=== PATIENT | female | born 1995 | race Caucasian/White ===

== ENCOUNTER → 2016-12-09 00:14 | Observation (INO) ==
--- NOTE | 2016-12-08 23:38 | OB/GYN Progress Note ---
Date of Encounter: 12/08/16 Time of Encounter: 23:34 - Assessment and Plan (1) 31 weeks gestation of Current Visit: Yes Status: Acute admit for observation (2) Vaginal discharge during in third trimester Current Visit: Yes Status: Acute Speculum exam Subjective - Subjective Principal diagnosis: Vaginal discharge Interval history: Patient is 21 y/o at 31 weeks gestational age presents to labor and delivery with c/o of a small gush of fluid at 2230. Patient denies any VB or leaking since. Patient did have intercourse earlier in the evening. Patient's primary OB doctor is Dr. Mcdonnell. Patient states she paged the missing persons investigator doctor but has not heard back for them and was worried because she has had a recent delivery. Patient denies any problems current . Denies smoking, drug or alcohol abuse. Patient denies any urinary frequency or dysuria. Patient states " I checked my cervix and it felt open". Antepartum ROS: loss of fluid, movement normal, no vaginal bleeding, no contractions Objective - Exam FHR: auscultation normal, category 1 FHR comments: 140 bpm moderate variability, no contractions noted Auscultation: bilateral: normal Abdomen: Present: normal appearance, soft, gravid Uterus: Present: normal Cervical dilation: closed Cervix effacement: thick station: ballotable Comments: Speculum exam: Negative pooling, negative nitrazine, Negative fern. Small amount of white discharge noted.
[2016-12-08 23:40] VITALS: BP 121/74
--- NOTE | 2016-12-14 08:04 | Discharge Summary ---
Date of Encounter: 12/08/16 Time of Encounter: 23:40 - Discharge Diagnosis (1) 31 weeks gestation of Priority: Primary Status: Acute Comments: admit for observation (2) Vaginal discharge during in third trimester Priority: Secondary Status: Acute Comments: Negative Nitrazine Negative Fern, Negative pooling - Discharge Medications Home Medications: Lexapro 10 mg PO DAILY 12/08/16 [History] Allergies/Adverse Reactions: Allergies Amoxicillin Allergy (Verified 07/12/16 23:46) Rash Date of admission: 12/08/16 23:23 Primary care physician: Iqra Tolentino Discharging clinician: Jo Sarah Anticipated date of discharge: 12/14/16 - Patient Status Disposition: Home, Self-Care Condition: Good - Discharge Instructions Follow Up With: Iqra Tolentino MD [Primary Care Provider] - - Diet and Activity Activity: increase activity as tolerated 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
== END | disposition home or self-care (01) ==
LOC: 1NENULAB

== ENCOUNTER → 2017-01-21 20:40 | Observation (INO) ==
--- NOTE | 2017-02-04 13:46 | OB Labor Progress Note ---
Date of Encounter: 01/21/17 Time of Encounter: 13:45 Labor Progress Note - Plan Plan: patient seen on Labor and Delivery for labor eval, she was examined and deemed not to be in labor, ok for discharge, NST reactive
== END | disposition home or self-care (01) ==
LOC: 1NENULAB
PROVIDERS: ADMIT Student in an Organized Health Care Education/Training Program; ATTEND Student in an Organized Health Care Education/Training Program

== ENCOUNTER 2017-01-31 10:31 | Inpatient (IN) ==
[2017-01-31] MEDS ORDERED: 0.9 % Sodium Chloride 1,000 ML IVC ONE ×5 (10:45→18:59)
--- NOTE | 2017-01-31 10:49 | Emergency Department Note ---
Disposition Clinical Impression: Febrile illness, Acute endometritis Disposition: Admitted As Inpatient Condition: Good Referrals: Iqra Tolentino MD [Primary Care Provider] - Forms: ED Satisfaction Letter Time of Disposition: 15:52 Fever HPI - General Chief Complaint: ED Fever Stated Complaint: fever, dizzy, shortness of breath Time Seen by Provider: 01/31/17 10:39 Source: patient, EMS Limitations: no limitations Nursing Notes Reviewed: Yes Vital Signs Reviewed: Yes - History of Present Illness HPI Narrative: 21-year-old female presents to the emergency room for fevers cough and shortness of breath. Patient is status post 3 days vaginal delivery without any complications. She did have a epidural placed during her delivery. She tolerated all this well. She states that she started feeling sick last evening and worse about 1 AM with some Rigors and fevers. She took some ibuprofen at that time. She woke up this morning with persistent fevers and rigors. She had a temp of near 102. She came into the ER for evaluation. Again she did have a vaginal delivery without any complications. She denies any significant abdominal pain. She said they did remove all the placenta as far she knew. She is not having any out of the ordinary vaginal complaints for a delivery. She denies any back pain. She does admit to generalized body aches. She also admits to a cough and shortness of breath. She states her cough is getting worse and she is unable to get any phlegm up. She has had no vomiting or diarrhea. She is not breast-feeding. She denies any neck pain or neck stiffness. She does feel slightly dizzy which she chewed beats to the fevers. Pt Subjective Complaint: fever Maximum Temperature Reported: 102 F Context: recent procedure/surgery Associated symptoms: Reports: chills, rigors, myalgias, dyspnea. Denies: vomiting, diarrhea, dysuria Improves with: nothing Worsens with: nothing Treatments prior to arrival fever: ibuprofen - Related Data Home Medications Medication Instructions Recorded Confirmed DiphenhydraMINE [Benadryl] 25 mg PO Q6HR PRN 01/21/17 01/31/17 BuPROPion XL (24 HR) [Wellbutrin 150 mg PO DAILY 01/31/17 01/31/17 XL] Multivitamin [Multi-Day Vitamins] 1 each PO DAILY 01/31/17 01/31/17 Allergies Allergy/AdvReac Type Severity Reaction Status Date / Time Amoxicillin Allergy Rash Verified 07/12/16 23:46 Constitutional: Reports: fever, chills Eyes: Denies: eye pain Cardiovascular: Reports: dyspnea on exertion. Denies: chest pain Respiratory: Reports: cough, dyspnea Gastrointestinal: Reports: abdominal pain Genitourinary: Denies: urgency, dysuria Musculoskeletal: Denies: back pain Integumentary: Denies: rash Neurological: Reports: headache Psychiatric: Reports: as per HPI Endocrine: Reports: as per HPI Hematological/Lymphatic: Reports: as per HPI Allergic/Immunologic: Reports: as per HPI Fever PMH - Past Medical History Medical history: Reports: migraine Surgical history: Reports: no surgical history Psychiatric history: Reports: anxiety, depression MEDICAL BILLING SUPERVISOR history: Reports: no MEDICAL BILLING SUPERVISOR history - Social History Smoking Status: Former smoker Alcohol use: Reports: none Drug use: Reports: none Physical Exam - General Limitations: no limitations General appearance: alert, in no apparent distress - Head Head exam: atraumatic, normocephalic - Eye Eye exam: Present: normal appearance - ENT ENT exam: normal exam, normal oropharynx - Neck Neck exam: Present: normal inspection - Chest Chest inspection: Present: normal inspection, symmetric chest wall rise - Respiratory Respiratory exam: Present: normal lung sounds bilaterally. Absent: respiratory distress, wheezes - Cardiovascular Cardiovascular exam: Present: normal rhythm, tachycardia - Abdominal Exam Abdominal exam: Present: soft, Non-Tender, diminished bowel sounds. Absent: tenderness, distention, guarding, rebound, rigidity - Extremities Exam Extremities exam: Present: normal inspection, full ROM, normal capillary refill. Absent: tenderness, pedal edema, joint swelling, calf tenderness - Back Exam Back exam: Present: normal inspection, other (epidural site appears well). Absent: tenderness - Neurological Exam Neurological exam: Present: alert, oriented X3 - Psychiatric Psychiatric exam: Present: normal affect, normal mood - Skin Skin exam: Present: warm, dry, intact Course - Reevaluation(s) Reevaluation #1: i placed call to CT scan about when they were taking my patient. that was at 11 :45. I said she was ready to go. they stated they had come over but a nurse was in the room and left. they did not tell me this nor did they anusha ask the nurse what the plan of action was. i told them to come back to take her. my initial order was placed at 11:05am. they said they would come back as soon as they could. i called back at 12:40. still no pharmacy intake technician has come to get patient. they said they would come over now. they come over and saw the Tech in the room and left again without even addressing the tech or myself. i called CT back again and they said someone was in the room. i told them that it doesn't matter. did you ask what was taking place in the room? they said no. I said the order was placed at 11:05 and its now 12:48, nearly two hours later on a patient who needs this CT chest to eval for PE. this is not good patient care. I have notified the charge nurse of this. i told the pharmacy intake technician kai and Martina that they need to talk the nurses and techs and if they can't take the patient they need to notify me directly and i can expedite things and direct traffic. Reevaluation #2: Pt c/o pain all over again. starting to have rigors again. she is afebrile now. CT chest is negative. no PE. no Pneumonia. will call [facility] for transfer. Reevaluation #3: Spoke on phone with [facility] and specifically with Dr Mcdonnell with OBGYN. this is her patient and she saw pt in the office just yesterday. she said everything was fine. pt states she didn't feel fine and continued to worsen over night. i explained all of my work up to her on the phone and she absolutely refused to accept the patient. she said we can take care of this here. i insisted that this was her patient and possible post OB complication and would need her OB to see her and evaluate her but she absolutely refused to take care of her own practice patient. she said i was wasting health care dollars and that an obgyn can handle it here at our facility. i told her i didn 't feel this was what was best for the patient as she delivered there and is an established patient of theirs and why would the patient want another subspecialty doctor to have to see her when they can take care of this and evaluate her. she said no and refused and yelled at me over the phone and hung up on me. i updated the patient on Dr Mcdonnell's actions and desires to not see or take care of her. i am attempting to her the patient admitted here at [facility]. Vital Signs Temperature 100.2 F H 01/31/17 10:34 Pulse Rate 137 01/31/17 10:34 Respiratory Rate 18 01/31/17 10:34 Blood Pressure 142/77 01/31/17 10:34 O2 Sat by Pulse Oximetry 96 01/31/17 10:34 Temperature 98.7 F 01/31/17 15:28 Pulse Rate 113 01/31/17 15:28 Respiratory Rate 18 01/31/17 15:28 Blood Pressure 126/72 01/31/17 15:28 O2 Sat by Pulse Oximetry 99 01/31/17 15:28 Oxygen Delivery Oxygen Delivery Room Air Fever - MDM Narrative Medical decision making narrative: pt will be admitted to hospitalist as dr duffy has accepted pt. consult to be done to OB for possible endometritis - Medical Records Medical records reviewed: Yes I reviewed the patient's medical records. - Lab Data Lab results reviewed: Yes I reviewed the patient's lab results. Result diagrams: 01/31/17 11:00 01/31/17 11:00 Lab Results 01/31/17 01/31/17 01/31/17 Range/Units 11:00 11:00 11:00 WBC 9.7 (4.3-11.1) K/mcL RBC 3.86 (3.82-4.97) M/mcL Hgb 11.2 L (11.5-15.4) g/dL Hct 33.2 L (35.3-44.9) % MCV 86.0 (83.0-100.0) fL MCH 29.0 (28.0-33.3) pg MCHC 33.7 (31.6-35.5) g/dL RDW 15.3 H (11.5-14.5) % Plt Count 230 (140-400) K/mcL MPV 8.4 L (9.4-12.4) fL Immature Gran % 0.7 (0-4) % Seg Neutrophils % 88.2 % Lymphocytes % 4.2 % Monocytes % 5.7 % Eosinophils % 0.9 % Basophils % 0.3 % Neutrophils # 8.6 (1.6-8.9) K/mcL Lymphocytes # 0.4 L (0.6-4.6) K/mcL Monocytes # 0.6 (0.0-1.3) K/mcL Eosinophils # 0.1 (0.0-0.6) K/mcL Basophils # 0.0 (0.0-0.2) K/mcL Immature Plt Fraction 1.3 (1.1-6.1) % Sodium 138 (136-145) mEq/L Potassium 3.7 (3.5-4.5) mEq/L Chloride 108 (98-109) mEq/L Carbon Dioxide 22 (19-29) mEq/L BUN 8 (7-20) mg/dL Creatinine 0.71 (0.57-1.11) mg/dL Est GFR ( Amer) > 60 (> 60) Est GFR (Non-Af Amer) > 60 (> 60) BUN/Creatinine Ratio 11 (6-26) Glucose 85 (70-99) mg/dL Calculated Osmolality 284 (280-300) Lactic Acid 1.6 (0.5-2.2) mmol/L Calcium 8.9 (8.6-10.8) mg/dL Total Bilirubin 0.4 (0.2-1.2) mg/dL Direct Bilirubin 0.1 (0.0-0.5) mg/dL Indirect Bilirubin 0.3 (0.0-1.2) mg/dL AST 16 (5-34) Units/L ALT 14 (0-55) Units/L Alkaline Phosphatase 122 (38-126) Units/L Serum Total Protein 6.1 (6.0-8.3) g/dL Albumin 2.6 L (3.5-5.0) g/dL Globulin 3.5 (2.4-3.5) g/dL Albumin/Globulin Ratio 0.7 L (1.1-2.2) Urine Color (Yellow) Urine Clarity (Clear) Urine pH (5.0-8.0) pH Units Ur Specific [place] (1.010-1.025) Urine Protein (Neg-Trace) mg/dL Urine Glucose (UA) (Normal) mg/dL Urine Ketones (Negative) mg/dL Urine Blood (Negative) Urine Nitrite (Negative) Urine Bilirubin (Negative) Urine Urobilinogen (Normal) mg/dL Ur Leukocyte Esterase (Negative) Ur Culture Indicated? (NO) 06/06/17 Range/Units 11:07 WBC (4.3-11.1) K/mcL RBC (3.82-4.97) M/mcL Hgb (11.5-15.4) g/dL Hct (35.3-44.9) % MCV (83.0-100.0) fL MCH (28.0-33.3) pg MCHC (31.6-35.5) g/dL RDW (11.5-14.5) % Plt Count (140-400) K/mcL MPV (9.4-12.4) fL Immature Gran % (0-4) % Seg Neutrophils % % Lymphocytes % % Monocytes % % Eosinophils % % Basophils % % Neutrophils # (1.6-8.9) K/mcL Lymphocytes # (0.6-4.6) K/mcL Monocytes # (0.0-1.3) K/mcL Eosinophils # (0.0-0.6) K/mcL Basophils # (0.0-0.2) K/mcL Immature Plt Fraction (1.1-6.1) % Sodium (136-145) mEq/L Potassium (3.5-4.5) mEq/L Chloride (98-109) mEq/L Carbon Dioxide (19-29) mEq/L BUN (7-20) mg/dL Creatinine (0.57-1.11) mg/dL Est GFR ( Amer) (> 60) Est GFR (Non-Af Amer) (> 60) BUN/Creatinine Ratio (6-26) Glucose (70-99) mg/dL Calculated Osmolality (280-300) Lactic Acid (0.5-2.2) mmol/L Calcium (8.6-10.8) mg/dL Total Bilirubin (0.2-1.2) mg/dL Direct Bilirubin (0.0-0.5) mg/dL Indirect Bilirubin (0.0-1.2) mg/dL AST (5-34) Units/L ALT (0-55) Units/L Alkaline Phosphatase (38-126) Units/L Serum Total Protein (6.0-8.3) g/dL Albumin (3.5-5.0) g/dL Globulin (2.4-3.5) g/dL Albumin/Globulin Ratio (1.1-2.2) Urine Color Yellow (Yellow) Urine Clarity Clear (Clear) Urine pH 7.5 (5.0-8.0) pH Units Ur Specific [place] 1.023 (1.010-1.025) Urine Protein Negative (Neg-Trace) mg/dL Urine Glucose (UA) Normal (Normal) mg/dL Urine Ketones Negative (Negative) mg/dL Urine Blood Negative (Negative) Urine Nitrite Negative (Negative) Urine Bilirubin Negative (Negative) Urine Urobilinogen Normal (Normal) mg/dL Ur Leukocyte Esterase Negative (Negative) Ur Culture Indicated? NO (NO) - Radiology Data Radiology results reviewed: Yes I reviewed the patient's radiology results. Critical Care Time Critical Care Time: Yes Total Critical Care Time: 65 Attestation: Critical care time spent in medical resuscitation with IV fluids and IV antibiotics as well as extensive workup of the patient with fever. Critical care time also spent and consultations with the hospitalist, her MEDICAL BILLING SUPERVISOR at [facility], the wind field service manager here at [facility] [place].
[2017-01-31 11:09] LABS: Basophils % 0.3 %; Eosinophils # 0.1 K/mcL (0.0-0.6); Eosinophils % 0.9 %; Hematocrit 33.2 % (35.3-44.9); Hemoglobin 11.2 g/dL (11.5-15.4); Immature Granulocytes % 0.7 % (0-4); Immature Platelets 1.3 % (1.1-6.1); Lymphocytes # 0.4 K/mcL (0.6-4.6); Lymphocytes % 4.2 %; Mean Corpuscular HGB Conc 33.7 g/dL (31.6-35.5); Mean Platelet Volume 8.4 fL (9.4-12.4); Monocytes # 0.6 K/mcL (0.0-1.3); Monocytes % 5.7 %; Neutrophils # 8.6 K/mcL (1.6-8.9); Platelet Count 230 K/mcL (140-400); Red Blood Count 3.86 M/mcL (3.82-4.97); Red Cell Distribution Width 15.3 % (11.5-14.5); Segmented Neutrophils % 88.2 %
[2017-01-31 11:19] LABS: Bilirubin,Urine Negative (Negative); Blood,Urine Negative (Negative); Clarity,Urine Clear (Clear); Color,Urine Yellow (Yellow); Glucose,Urine (UA) Normal (Normal); Ketones,Urine Negative (Negative); Leukocyte Esterase,Urine Negative (Negative); Nitrite,Urine Negative (Negative); PH,Urine 7.5 pH Units (5.0-8.0); Protein,Urine Negative (Neg-Trace); Specific Gravity,Urine 1.023 (1.010-1.025); Urobilinogen,Urine Normal (Normal)
[2017-01-31 11:22] LABS: Alanine Aminotransferase 14 Units/L (0-55); Albumin 2.6 g/dL (3.5-5.0); Albumin/Globulin Ratio 0.7 (1.1-2.2); Alkaline Phosphatase 122 Units/L (38-126); Aspartate Amino Transferase 16 Units/L (5-34); BUN/Creatinine Ratio 11 (6-26); Bilirubin,Direct 0.1 mg/dL (0.0-0.5); Bilirubin,Indirect 0.3 mg/dL (0.0-1.2); Bilirubin,Total 0.4 mg/dL (0.2-1.2); Blood Urea Nitrogen 8 mg/dL (7-20); Calcium 8.9 mg/dL (8.6-10.8); Carbon Dioxide 22 mEq/L (19-29); Chloride 108 mEq/L (98-109); Globulin 3.5 g/dL (2.4-3.5); Glucose 85 mg/dL (70-99); Osmolality,Calculated 284 (280-300); Potassium 3.7 mEq/L (3.5-4.5); Sodium 138 mEq/L (136-145); Total Protein 6.1 g/dL (6.0-8.3); eGFR For African Americans > 60 (> 60); eGFR For Non-African Americans > 60 (> 60)
[2017-01-31] MEDS ORDERED: 0.9 % Sodium Chloride 1,000 ML ONE (13:12)
[2017-01-31] MEDS ORDERED: Ondansetron 4 MG/2 ML VIAL IVP PRN ×2 (13:25→19:08)
[2017-01-31] MEDS ORDERED: *HR* Morphine 2 MG/ML SYRINGE IVP ONE ×2 (13:25→14:49)
[2017-01-31] MEDS ORDERED: Ketorolac 30 MG/ML VIAL IVP ONE (13:32)
[2017-01-31] MEDS ORDERED: Gentamicin 110 MG in 0.9 % Sodium Chloride 100 ML IVPB ONE (15:00)
[2017-01-31] MEDS ORDERED: Clindamycin 900 MG/50 ML 900 MG/50 ML IV.SOLN IVPB SCH (16:00)
[2017-01-31] MEDS ORDERED: Ondansetron 4 MG/2 ML VIAL ONE (16:02)
[2017-01-31 17:38] LABS: Basophils % 0.1 %; Eosinophils % 0.4 %; Hematocrit 31.9 % (35.3-44.9); Hemoglobin 10.5 g/dL (11.5-15.4); Immature Granulocytes % 1.5 % (0-4); Lymphocytes # 0.4 K/mcL (0.6-4.6); Mean Corpuscular HGB Conc 32.9 g/dL (31.6-35.5); Mean Corpuscular Volume 88.1 fL (83.0-100.0); Mean Platelet Volume 8.6 fL (9.4-12.4); Monocytes # 0.4 K/mcL (0.0-1.3); Neutrophils # 6.7 K/mcL (1.6-8.9); Platelet Count 146 K/mcL (140-400); Red Blood Count 3.62 M/mcL (3.82-4.97); Red Cell Distribution Width 15.5 % (11.5-14.5)
[2017-01-31] MEDS ORDERED: *HR* HYDROcodone/Acet 10/325 mg TABLET PO PRN ×2 (19:07→19:14)
[2017-01-31] MEDS ORDERED: Naloxone 0.4 MG/ML INJ IVP PRN (19:08)
--- NOTE | 2017-01-31 19:37 | Internal Med History&Physical ---
<BraxtonJorge Aguirre - Last Filed: 01/31/17 20:03> Date of Encounter: 01/31/17 Time of Encounter: 18:00 Assessment and Plan (1) Acute endometritis Current visit: Yes Status: Acute Assess: Ms. Hassan presents with chief complaint of fever, cough, and shortness of breath. Patient states that she is 3 days post vaginal delivery without complications. She reports she started feeling sick last night and worse about 1 AM today with some rigors and fevers. She took ibuprofen at the time of fever and rigors continued. She had temp of near 102 F. she denies any significant abdominal pain and states she believes they removed all placenta. Denies back pain but does admit to generalized body aches and chills. She also reports cough and shortness of breath and states her cough is getting worse but she is unable to cough up any mucus or phlegm. Denies vomiting or diarrhea, neck stiffness, or pain. Patient's current WBCs from first and second lab draws are 9.7 and 7.6 respectively. Lactic acid is currently 1.0. Plan: Continuous monitoring of vital signs Pelvic U/S ordered plugman consult ordered Clindamycin IV ordered in ED Ertapenem IV ordered in ED Follow-up labs ordered Tylenol 650 mg ordered Q6 Monitor patient for signs of increased infection and consider adding Flagyl for infection coverage (2) Fever Current visit: Yes Status: Acute Assess: Patient presents with acute fever of 102.0 due to current diagnosis of endometritis. Plan: Continuous monitoring of vital signs Clindamycin IV ordered in ED Ertapenem IV ordered in ED Follow-up labs ordered Tylenol 650 mg ordered Q6 Qualifiers: Fever type: due to other condition Qualified Code(s): R50.81 - Fever presenting with conditions classified elsewhere (3) Dyspnea Current visit: Yes Status: Acute Assess: Patient is dyspneic due to current infection and abdominal pain. Plan: Supplemental O2 ordered with titration if SpO2 <92% SpO2 monitoring ordered Monitor patient and vital signs Qualifiers: Dyspnea type: shortness of breath Qualified Code(s): R06.02 - Shortness of breath (4) Abdominal pain Current visit: Yes Status: Acute Assess: Patient presents with acute abdominal pain related to current diagnosis of endometritis. Patient states she is post 3 days vaginal delivery without complications. Patient feeling sick yesterday evening and worse at 1 AM today with onset of rigors and fever. Plan: Tylenol 650 Q6 ordered for pain 103 Radisson ordered for pain rated 4-8 Qualifiers: Abdominal location: generalized Qualified Code(s): R10.84 - Generalized abdominal pain (5) DVT prophylaxis Current visit: Yes Status: Acute Assess: Patient received DVT prophylaxis due to patient protocol and bedrest status. Plan: SCDs ordered bilaterally for lower legs Internal Medicine - H&P: HPI Chief complaint: Fever/cough/SOB Admitted From: Emergency Dept Plans for Post Hospital Care: Home History of present illness: Ms. Hassan is a 21 year old female presents from the ED with chief complaint of fever, cough, and shortness of breath. Patient states that she is 3 days post vaginal delivery without complications. She reports she started feeling sick last night and worse about 1 AM today with some rigors and fevers. She took ibuprofen at the time of fever and rigors continued. She had temp of near 102 F. she denies any significant abdominal pain and states she believes they removed all placenta. Denies back pain but does admit to generalized body aches and chills. She also reports cough and shortness of breath and states her cough is getting worse but she is unable to cough up any mucus or phlegm. Denies vomiting or diarrhea, neck stiffness, or pain. Patient's current WBCs from first and second lab draws are 9.7 and 7.6 respectively. Lactic acid is currently 1.0. Patient reports current bleeding is light in flow and light in color. Patient is to be admitted as inpatient status with diagnosis of endometritis. Patient received first dose of clindamycin in the ED as well as first dose of gentamicin. Patient showed signs of adverse effects to gentamicin , so infusion was stopped. Patient continues to receive clindamycin with replacement of gentamicin by ertapenem. OB consult ordered placed. Patient is at high risk for developing sepsis and will be monitored for continued or increased signs of infection. Will consider addition of Flagyl to antibiotics as recommended by protocol if signs of infection continue to worsen. Patient will be monitored for adverse effects of antibiotic infusions and will be closely monitored. Antipyretics and pain medications ordered. Past Med Surg Social Fam HX - Past Medical History Source: patient Medical history: migraine Psychiatric history: anxiety, depression - Past Surgical History Surgical History: no surgical history - Social History Smoking Status: Former smoker Smokeless Tobacco Status: No Alcohol use: none Drug use: none Current living situation: Home, With Family Activity Level: Independent ambulation Recent Out of Country Travel Within the Last 8 Weeks: No Exposure or Possible Exposure to Illness During Travel: No - Family History Grandmother Living Status: Still Living Hx Family Cardiac Disorders: No Hx Family Respiratory Disorders: No Hx Family Cancer: No Hx Family GI Disorders: No Hx Family Endocrine Disorder: Yes (diabetic) Hx Family Neuromuscular Disorders: No Hx Family Neurologic Disorders: No Hx Family HEENT Disorders: No Hx Family Autoimmune Disorders: No Internal Medicine - H&P: Meds DiphenhydraMINE [Benadryl] 25 mg PO Q6HR PRN 01/21/17 [History] BuPROPion XL (24 HR) [Wellbutrin XL] 150 mg PO DAILY 01/31/17 [History] Multivitamin [Multi-Day Vitamins] 1 each PO DAILY 01/31/17 [History] Allergies Amoxicillin Allergy (Verified 07/12/16 23:46) Rash All Systems PM: A 10-system review of systems was performed and is negative for pertinent findings except as documented above in the HPI. - Constitutional Constitutional: as per HPI, chills, fever(s) - EENT Eyes: no change in vision, no discharge, no pain, no photophobia Ears: no ear discharge, no ear pain, no tinnitus Nose, mouth and throat: no dysphagia, no nasal discharge, no neck pain, no sore throat - Breasts Breasts: as per HPI - Cardiovascular Cardiovascular ROS IM: as per HPI, dyspnea, no chest pain, no diaphoresis, no lightheadedness, no palpitations, no syncope - Respiratory Respiratory: as per HPI, cough, dyspnea, no wheezing, no excessive phlegm production - Gastrointestinal Gastrointestinal: as per HPI, abdominal pain, no diarrhea, no hematemesis, no hematochezia, no melena, no nausea, no vomiting - Genitourinary Genitourinary: as per HPI, pelvic pain, other (Abdominal pain with light bleeding that is light in color) Menstruation: as per HPI - Musculoskeletal Musculoskeletal ROS IM: no numbness, no tingling - Integumentary Integumentary IM: no rash, no unusual bruising - Neurological Neurological ROS: no confusion, no convulsions, no focal weakness, no numbness, no tingling, no tremor(s) - Psychiatric Psychiatric: as per HPI - Endocrine Endocrine IM: as per HPI - Hematologic/Lymphatic Hematologic/Lymphatic: no easy bruising - Allergic/Immunologic Allergic/Immunologic: as per HPI, other (Reaction to gentamycin) - Constitutional Vitals: Temp Pulse Resp BP Pulse Ox 102.3 F H 125 18 116/93 96 01/31/17 17:00 01/31/17 17:00 01/31/17 18:07 01/31/17 18:07 01/31/17 17:00 General appearance: Present: mild distress (Chills and rigor present on exam), A &O X 3, pleasant, obese, answers questions appropriately - Head Head exam: Present: atraumatic, normocephalic - Eye Eye exam: Present: PERRL, conjuntiva pink, sclera anicteric Pupils: Present: PERRL - ENT ENT exam: Present: normal exam, normal external ear exam - Neck Neck exam general surgery: Present: normal inspection, supple, trachea midline. Absent: lymphadenopathy - Respiratory Respiratory exam: Present: CTAB. Absent: accessory muscle use, rales, rhonchi, wheezes - Cardiovascular Cardiovascular exam: Present: RRR, +S1, +S2, tachycardia. Absent: diastolic murmur, gallop, rubs, systolic murmur - GI/Abdominal GI/Abdominal exam: Present: firm, guarding, normal bowel sounds, soft. Absent: distended, tenderness - Rectal Rectal exam: Present: deferred - Additional comments: exam deferred. - Extremities Exam Extremities exam: Present: warm, radial pulses palpable and symetrical. Absent : calf tenderness, cyanotic, pedal edema - Back Exam Back exam: Present: normal inspection - Neurological Exam Neurological exam: Present: CN II-XII intact, oriented X3, no focal deficits. Absent: pronater drift, facial droop, speech deficit - Psychiatric Psychiatric exam: Present: anxious - Skin Skin exam: Present: dry, intact Internal Med - H&P Results - Labs CBC & Chem 7: 01/31/17 17:28 01/31/17 11:00 Labs: Short CBC 01/31/17 Range/Units 17:28 WBC 7.6 (4.3-11.1) K/mcL Hgb 10.5 L (11.5-15.4) g/dL Hct 31.9 L (35.3-44.9) % Plt Count 146 (140-400) K/mcL Neutrophils # 6.7 (1.6-8.9) K/mcL - Impressions ITS Impressions Abdomen/Pelvis CT 01/31/17 17:14 IMPRESSION: 1. Striated nephrograms in the kidneys, which are nonspecific but can be seen with pyelonephritis as well as ATN and hypotension. 2. Enlarged uterus with moderate hemorrhagic debris along the endometrium, consistent with recent delivery. 3. Moderate splenomegaly. D/ /31/2017 18:18:51 Cecil Castle MD / dawood Interpreting Provider: Cecil Castle MD - Diagnostic Studies CT scan - chest Additional comments: Impressions Chest CTA 01/31/17 11:05 IMPRESSION: No evidence of pulmonary embolism or other acute process in the chest. Mildly limited evaluation of the segmental and subsegmental pulmonary arteries secondary to suboptimal bolus timing. D/ / Chon Mercer MD / Chon Mercer MD Interpreting Provider: Chon Mercer MD CT scan - abdomen Additional comments: Impressions Abdomen/Pelvis CT 01/31/17 17:14 IMPRESSION: 1. Striated nephrograms in the kidneys, which are nonspecific but can be seen with pyelonephritis as well as ATN and hypotension. 2. Enlarged uterus with moderate hemorrhagic debris along the endometrium, consistent with recent delivery. 3. Moderate splenomegaly. D/ /31/2017 18:18:51 Cecil Castle MD / dawood Interpreting Provider: Cecil Castle MD Chest x-ray Additional comments: Impressions Chest X-Ray 01/31/17 10:45 IMPRESSION: No acute cardiopulmonary disease D/ / Deep Reeder MD / Deep Reeder MD Interpreting Provider: Deep Reeder MD <Sadia Pavon E - Last Filed: 02/01/17 07:59> Date of Encounter: 02/01/17 Internal Medicine - H&P: HPI History of present illness: Ms. Hassan is a 21 year old female All Systems PM: A 10-system review of systems was performed and is negative for pertinent findings except as documented above in the HPI. - Constitutional Vitals: Temp Pulse Resp BP Pulse Ox 100.7 F H 106 16 134/80 97 02/01/17 07:25 02/01/17 07:25 02/01/17 07:25 02/01/17 07:25 02/01/17 07:25 Internal Med - H&P Results - Labs CBC & Chem 7: 02/01/17 02:58 02/01/17 02:58 Labs: Short CBC 01/31/17 02/01/17 Range/Units 21:55 02:58 WBC 9.3 9.0 (4.3-11.1) K/mcL Hgb 10.9 L 10.2 L (11.5-15.4) g/dL Hct 33.0 L 31.5 L (35.3-44.9) % Plt Count 174 180 (140-400) K/mcL Neutrophils # 8.2 7.6 (1.6-8.9) K/mcL BMP 02/01/17 02:58 Sodium 136 Potassium 3.5 Chloride 107 Carbon Dioxide 21 BUN 7 Creatinine 0.79 Glucose 73 Calcium 8.0 L Liver Function 02/01/17 Range/Units 02:58 Total Bilirubin 0.4 (0.2-1.2) mg/dL AST 32 (5-34) Units/L ALT 26 (0-55) Units/L Alkaline Phosphatase 104 (38-126) Units/L Albumin 2.3 L (3.5-5.0) g/dL - Impressions ITS Impressions Pelvis Ultrasound 01/31/17 21:30 IMPRESSION: 1. Enlarged uterus with thickened endometrium and endometrial arterial flow concerning for retained products of conception. 2. Normal ovaries. D/ / Marcus Scanlon MD / Marcus Scanlon MD Interpreting Provider: Marcus Scanlon MD - Attending Attestation This is a late entry for a patient I examined and reviewed laboratory, imaging and all diagnostic data on 01/31/17. My medical decision-making was reviewed with Jorge Limon - DORIS. I agreed with the documented findings, disposition and treatment plan as described above. Mrs Hassan is a 21 year old female, 2 who had an uncomplicated vaginal delivery 3 days ago. She presents with fever, chills, malaise, abdominal pain, shortness of breath and dry cough. In the ED, patient had a temp of 103 and developed an allergic reaction to gentamycin. During my examination, temp 100.6. patient is AOx3. abdomen is soft, mild diffuse tenderness. No LE edema. chest CTAB. heart: tachcyardia. WBC 9.7 lactic acid 1. CTAP shows possible bilateral pyelonephritis. CTA chest was negative for PE, and any acute process. EXECUTIVE RELATIONS SPECIALIST consulted for possible D&C. continue IV fluid resuscitation and broad spectrum antibiotics: Ertapenem and Clindamycin.
--- NOTE | 2017-01-31 19:45 | OB/GYN History & Physical ---
Date of Encounter: 01/31/17 Time of Encounter: 19:41 History of Present Illness Chief complaint: Fever, generalized malaise HPI: Ms. Hassan is a 21 year old female 2 now para 2 female 3 days status post uncomplicated vaginal delivery presents to the ER with fever and chills as well as generalized body aches. She states her delivery was uncomplicated showing pushed once and did not have prolonged rupture of membranes. She had no fever during labor and she has had no fevers until now. She denies excessive bleeding and has no abnormal vaginal discharge. She denies breast tenderness. She does report nonproductive cough for 1 day. She is not breast-feeding. Patient has no bladder complaints. She does complain of constipation. Past Med Surg Social Fam HX - Past Medical History Source: patient, old records reviewed Medical history: migraine Psychiatric history: anxiety, depression - Past Surgical History Surgical History: no surgical history - Social History Smoking Status: Former smoker Smokeless Tobacco Status: No Alcohol use: none Drug use: none - Family History Grandmother Living Status: Still Living Hx Family Cardiac Disorders: No Hx Family Respiratory Disorders: No Hx Family Cancer: No Hx Family GI Disorders: No Hx Family Endocrine Disorder: Yes (diabetic) Hx Family Neuromuscular Disorders: No Hx Family Neurologic Disorders: No Hx Family HEENT Disorders: No Hx Family Autoimmune Disorders: No Obstetrical History - Pregnancies : 2 Para: 2 Medications and Allergies DiphenhydraMINE [Benadryl] 25 mg PO Q6HR PRN 01/21/17 [History] BuPROPion XL (24 HR) [Wellbutrin XL] 150 mg PO DAILY 01/31/17 [History] Multivitamin [Multi-Day Vitamins] 1 each PO DAILY 01/31/17 [History] Allergies Amoxicillin Allergy (Verified 07/12/16 23:46) Rash Exam - Vital Signs Vital signs: Initial Vital Signs Temp Pulse Resp BP Pulse Ox 100.2 F H 137 18 142/77 96 01/31/17 10:34 01/31/17 10:34 01/31/17 10:34 01/31/17 10:34 01/31/17 10:34 - Constitutional Constitutional: well developed, well nourished, moderate distress - HEENT HEENT: EOMI, PERRL - Neck Neck exam: full ROM - Lungs Respiratory exam: CTAB - Cardiovascular Cardiovascular exam: RRR - Breasts Breast: bilateral: normal - Abdomen Abdomen detail: right lower quadrant: tenderness (appropriate), left lower quadrant: tenderness - Extremities Extremities exam: full ROM - Uterus Uterus exam: Present: normal size, enlarged Results Result Diagrams: 01/31/17 17:28 01/31/17 11:00 Abnormal lab results RBC 3.62 M/mcL (3.82-4.97) L 01/31/17 17:28 Hgb 10.5 g/dL (11.5-15.4) L 01/31/17 17:28 Hct 31.9 % (35.3-44.9) L 01/31/17 17: RDW 15.5 % (11.5-14.5) H 01/31/17 17:28 MPV 8.6 fL (9.4-12.4) L 01/31/17 17:28 Lymphocytes # 0.4 K/mcL (0.6-4.6) L 01/31/17 17:28 Albumin 2.6 g/dL (3.5-5.0) L 01/31/17 11:00 Albumin/Globulin Ratio 0.7 (1.1-2.2) L 01/31/17 11:00 All other labs normal.
[2017-01-31] MEDS: Ertapenem 1,000 MG in 0.9 % Sodium Chloride Mini Bag 100 ML IVPB SCH (20:05)
[2017-01-31 22:03] LABS: Basophils % 0.2 %; Eosinophils % 0.1 %; Hemoglobin 10.9 g/dL (11.5-15.4); Immature Granulocytes % 1.8 % (0-4); Lymphocytes # 0.4 K/mcL (0.6-4.6); Lymphocytes % 4.7 %; Mean Corpuscular Volume 87.8 fL (83.0-100.0); Mean Platelet Volume 8.6 fL (9.4-12.4); Monocytes # 0.5 K/mcL (0.0-1.3); Monocytes % 5.4 %; Neutrophils # 8.2 K/mcL (1.6-8.9); Platelet Count 174 K/mcL (140-400); Red Blood Count 3.76 M/mcL (3.82-4.97); Red Cell Distribution Width 15.5 % (11.5-14.5); Segmented Neutrophils % 87.8 %
[2017-01-31] MEDS: *HR* HYDROmorphone 2 MG/ML SYRINGE IVP PRN (22:50)
[2017-01-31] MEDS: Acetaminophen 325 MG TABLET PO PRN (23:05)
[2017-01-31] MEDS ORDERED: 0.9 % Sodium Chloride 1,000 ML IVC SCH ×2 (23:30→23:45)
[2017-01-31] MEDS ORDERED: 0.9 % Sodium Chloride 500 ML IVC ONE (23:36)
[2017-01-31] MEDS: Clindamycin 600 MG/50 ML 600 MG/50 ML IV.SOLN IVPB SCH (23:43)
[2017-02-01] MEDS ORDERED: Acetaminophen 325 MG TABLET PO ONE (01:38)
[2017-02-01] MEDS ORDERED: 0.9 % Sodium Chloride 1,000 ML IVC SCH (01:45)
[2017-02-01] MEDS: *HR* HYDROmorphone 2 MG/ML SYRINGE IVP PRN ×3 (01:55→08:40)
--- NOTE | 2017-02-01 01:55 | OB/GYN Progress Note ---
Date of Encounter: 02/01/17 Time of Encounter: 01:53 - Assessment and Plan (1) Febrile illness Current Visit: Yes Status: Acute Uncertain to etiology of PPD #4 fever. She reains with cough that is nonproductive, her CXR was WNL. CT showed no evidence of PE. U/S shows possible evidence of retained placenta with increased arterial blood flow. No specific intrauterine masses are noted and ES is only 1.9 cm. D/w IM and pt and plan will be to proceed with h/s d&C tomorrow to r/o retained products of conception. Subjective - Subjective Principal diagnosis: post fever Interval history: Pt with continued cough and diffuse tenderness. She remains febrile and tachycardic. She last ate at 23:15. I reviewed u/s with radiologist Objective - Vital Signs Latest vital signs: Vital Signs Temp Pulse Resp BP Pulse Ox 02/01/17 01:08 102.3 F H 02/01/17 01:00 102.3 F H 02/01/17 00:36 101.4 F H 02/01/17 00:00 102.6 F H 135 16 122/60 96 Intake and Output 01/31/17 01/31/17 02/01/17 15:59 23:59 07:59 Intake Total 0 / 0 Output Total 1200 / 1200 Balance -1200 / -1200 Intake: Oral 0 / 0 Output: Catheter 1200 / 1200 - I&O's I&O's: Intake & Output 01/29/17 01/30/17 01/31/17 02/01/17 23:59 23:59 23:59 23:59 Intake Total 0 / 0 Output Total 1200 / 1200 Balance -1200 / -1200 - Exam Lungs: left: normal Chest: Normal S1 (rate 122), Normal S2 Extremities: Present: normal Abdomen: Present: soft, tenderness (Mild diffuse tenderness, no rebound or guarding) - Labs Labs: Abnormal lab results RBC 3.76 M/mcL (3.82-4.97) L 01/31/17 21:55 Hgb 10.9 g/dL (11.5-15.4) L 01/31/17 21:55 Hct 33.0 % (35.3-44.9) L 01/31/17 21:55 RDW 15.5 % (11.5-14.5) H 01/31/17 21:55 MPV 8.6 fL (9.4-12.4) L 01/31/17 21:55 Lymphocytes # 0.4 K/mcL (0.6-4.6) L 01/31/17 21:55 Albumin 2.6 g/dL (3.5-5.0) L 01/31/17 11:00 Albumin/Globulin Ratio 0.7 (1.1-2.2) L 01/31/17 11:00 Consult Discharge Plan - Plan Referrals: Iqra Tolentino MD [Primary Care Provider] -
[2017-02-01 03:07] LABS: Basophils % 0.1 %; Hematocrit 31.5 % (35.3-44.9); Hemoglobin 10.2 g/dL (11.5-15.4); Immature Granulocytes % 2.5 % (0-4); Lymphocytes # 0.7 K/mcL (0.6-4.6); Lymphocytes % 7.4 %; Mean Corpuscular HGB Conc 32.4 g/dL (31.6-35.5); Mean Corpuscular Hemoglobin 28.5 pg (28.0-33.3); Mean Platelet Volume 8.7 fL (9.4-12.4); Monocytes # 0.5 K/mcL (0.0-1.3); Monocytes % 5.6 %; Neutrophils # 7.6 K/mcL (1.6-8.9); Platelet Count 180 K/mcL (140-400); Red Blood Count 3.58 M/mcL (3.82-4.97); Red Cell Distribution Width 15.5 % (11.5-14.5); Segmented Neutrophils % 84.4 %
[2017-02-01 03:22] LABS: Alanine Aminotransferase 26 Units/L (0-55); Albumin 2.3 g/dL (3.5-5.0); Albumin/Globulin Ratio 0.7 (1.1-2.2); Alkaline Phosphatase 104 Units/L (38-126); Aspartate Amino Transferase 32 Units/L (5-34); BUN/Creatinine Ratio 9 (6-26); Bilirubin,Total 0.4 mg/dL (0.2-1.2); Blood Urea Nitrogen 7 mg/dL (7-20); Carbon Dioxide 21 mEq/L (19-29); Chloride 107 mEq/L (98-109); Globulin 3.4 g/dL (2.4-3.5); Glucose 73 mg/dL (70-99); Magnesium 1.3 mg/dL (1.6-2.6); Osmolality,Calculated 279 (280-300); Potassium 3.5 mEq/L (3.5-4.5); Sodium 136 mEq/L (136-145); Total Protein 5.7 g/dL (6.0-8.3); eGFR For African Americans > 60 (> 60); eGFR For Non-African Americans > 60 (> 60)
[2017-02-01] MEDS: Clindamycin 600 MG/50 ML 600 MG/50 ML IV.SOLN IVPB SCH ×3 (08:41→23:57)
[2017-02-01] MEDS: Ertapenem 1,000 MG in 0.9 % Sodium Chloride Mini Bag 100 ML IVPB SCH (08:42)
[2017-02-01] MEDS ORDERED: Ertapenem 1,000 MG in 0.9 % Sodium Chloride Mini Bag 100 ML IVPB SCH (09:00)
--- NOTE | 2017-02-01 09:14 | Internal Med Progress Note ---
Date of Encounter: 02/01/17 Time of Encounter: 09:09 - Assessment and plan (1) SIRS (systemic inflammatory response syndrome) Current Visit: Yes Status: Acute Assessment and plan: tachycardic, febrile with retained uterine products as possible source of infection 102.3 T, 106 P, 20RR, 134/80 WBC 9.0 la 1.0 continue IV abx, IVF NPO D&C this afternoon with Dr. Bradshaw RIP panel (2) Abdominal pain Current Visit: Yes Status: Acute Qualifiers: Abdominal location: generalized Qualified Code(s): R10.84 - Generalized abdominal pain (3) Febrile illness Current Visit: Yes Status: Acute - Subjective Interval history: 21 yo F 3 days post presented with dry cough, fever chills and achy pain. Pt CXR and PE work up was negative for acute pulmonary process. Abd/ pelvic US suspicious for retained products. Obgyn was consulted plan for D&C this afternoon. Pt states she feels better since starting IV abx. - Constitutional Vitals: Temp Pulse Resp BP Pulse Ox 100.7 F H 106 16 134/80 97 02/01/17 07:25 02/01/17 07:25 02/01/17 07:25 02/01/17 07:25 02/01/17 07:25 General appearance: Present: mild distress (Chills and rigor present on exam), A &O X 3, pleasant, obese, answers questions appropriately - Head Head exam: Present: atraumatic, normocephalic - Eye Eye exam: Present: PERRL, conjuntiva pink, sclera anicteric Pupils: Present: PERRL - Neck Neck exam general surgery: Present: supple, trachea midline. Absent: lymphadenopathy - Respiratory Respiratory exam: Present: CTAB. Absent: accessory muscle use, chest wall tenderness, rales, rhonchi, wheezes Additional comments: actively coughing with deep inspiration - Cardiovascular Cardiovascular exam: Present: RRR, +S1, +S2. Absent: diastolic murmur, gallop, rubs, systolic murmur - GI/Abdominal GI/Abdominal exam: Present: normal bowel sounds, soft, no peritoneal signs. Absent: distended, tenderness - Extremities Exam Extremities exam: Present: warm, radial pulses palpable and symetrical. Absent : calf tenderness, cyanotic, pedal edema - Neurological Exam Neurological exam: Present: CN II-XII intact, oriented X3, no focal deficits. Absent: pronater drift, facial droop, speech deficit - Skin Skin exam: Present: dry, intact Internal Medicine: Result - Labs CBC & Chem 7: 02/01/17 02:58 02/01/17 02:58 Labs: Short CBC 01/31/17 02/01/17 Range/Units 21:55 02:58 WBC 9.3 9.0 (4.3-11.1) K/mcL Hgb 10.9 L 10.2 L (11.5-15.4) g/dL Hct 33.0 L 31.5 L (35.3-44.9) % Plt Count 174 180 (140-400) K/mcL Neutrophils # 8.2 7.6 (1.6-8.9) K/mcL BMP 02/01/17 02:58 Sodium 136 Potassium 3.5 Chloride 107 Carbon Dioxide 21 BUN 7 Creatinine 0.79 Glucose 73 Calcium 8.0 L Liver Function 02/01/17 Range/Units 02:58 Total Bilirubin 0.4 (0.2-1.2) mg/dL AST 32 (5-34) Units/L ALT 26 (0-55) Units/L Alkaline Phosphatase 104 (38-126) Units/L Albumin 2.3 L (3.5-5.0) g/dL - Impressions Impressions Pelvis Ultrasound 01/31/17 21:30 IMPRESSION: 1. Enlarged uterus with thickened endometrium and endometrial arterial flow concerning for retained products of conception. 2. Normal ovaries. D/ / Marcus Scanlon MD / Marcus Scanlon MD Interpreting Provider: Marcus Scanlon MD Consult Discharge Plan - Plan Referrals: Iqra Tolentino MD [Primary Care Provider] -
[2017-02-01] MEDS: Acetaminophen 325 MG TABLET PO PRN (11:58)
--- NOTE | 2017-02-01 13:06 | Anesthesia Evaluation PreOp ---
Date of Encounter: 02/01/17 Time of Encounter: 13:04 - Past History Planned Operation: d&c retained placenta. 3 days s/p vag deliver Cardiac History: Denies any Significant Hx Pulmonary History: Former smoker ROOFING SUBCONTRACTOR History: Other (anxiety, depression) Other Medical History: Denies Any Significant HX, Other (not breast feeding) Anesthesia History: No Prior Anesthetic Complications, Past Anesthesia Alcohol Use: none Drug use: none Medications and Allergies DiphenhydraMINE [Benadryl] 25 mg PO Q6HR PRN 01/21/17 [History] BuPROPion XL (24 HR) [Wellbutrin XL] 150 mg PO DAILY 01/31/17 [History] Multivitamin [Multi-Day Vitamins] 1 each PO DAILY 01/31/17 [History] Allergies Amoxicillin Allergy (Verified 07/12/16 23:46) Rash - Meds/Allergy Pre-op Review Medications Reviewed: Yes Allergies Reviewed: Yes Beta Blockers on Current Med List: No Anesthesia Results - Labs 02/01/17 02:58 02/01/17 02:58 Anesthesia Exam O2 Sat Height 1.68 m Weight 103.1 kg O2 Sat by Pulse Oximetry 93 O2 Sat by Pulse Oximetry 97 O2 Sat by Pulse Oximetry 97 O2 Sat by Pulse Oximetry 95 O2 Sat by Pulse Oximetry 96 O2 Sat by Pulse Oximetry 98 O2 Sat by Pulse Oximetry 96 O2 Sat by Pulse Oximetry 99 O2 Sat by Pulse Oximetry 97 O2 Sat by Pulse Oximetry 98 O2 Sat by Pulse Oximetry 99 Vital Signs Temp Pulse Resp BP Pulse Ox 100.2 F H 137 18 142/77 96 01/31/17 10:34 01/31/17 10:34 01/31/17 10:34 01/31/17 10:34 01/31/17 10:34 Height: 1.68 Weight: 103 NPO (# of Hours): >8 - HEENT Pupil (Motor): Pupils equal, EOMI Mallampati: I Teeth: Normal Oral Opening: Greater than 3 - ROOFING SUBCONTRACTOR LOC: Oriented ROOFING SUBCONTRACTOR Motor: Normal RUE, Normal LUE, Normal RLE, Normal LLE, Normal Face ROOFING SUBCONTRACTOR Sensory: Normal: RUE, LUE, RLE, LLE, Face - Cardiac Rhythm: Regular Murmur: None - Pulmonary Breath Sounds: bilateral Clear Respiratory Effort: Symmetrical Anesthesia Assess/Plan ASA Score: 2, E Modified Martin Scale for Level of Consciousness: Cooperative, oriented, and tranquil Anesthetic Plan: General Monitoring Plan: Standard Monitors Recovery Plan: PACU
[2017-02-01] MEDS ORDERED: *HR* FentaNYL (PF) 100 MCG/2 ML VIAL ONE (13:34)
[2017-02-01] MEDS ORDERED: *HR* Midazolam HCl 2 MG/2 ML VIAL ONE (13:35)
[2017-02-01] MEDS ORDERED: *HR* Propofol 200 MG/20 ML VIAL IVP ONE (13:36)
[2017-02-01] MEDS ORDERED: Lidocaine -MPF 2% 2 ML VIAL ONE (13:37)
[2017-02-01] MEDS ORDERED: *HR* Succinylcholine 200 MG/10 ML VIAL IVP ONE (13:38)
[2017-02-01] MEDS ORDERED: Lidocaine -MPF 4% 5 ML AMPUL ONE (13:41)
[2017-02-01] MEDS ORDERED: *HR* Rocuronium Bromide 50 MG/5 ML VIAL ONE (13:55)
[2017-02-01] MEDS ORDERED: Dexamethasone 4 MG/ML VIAL ONE (14:24)
[2017-02-01] MEDS ORDERED: Ondansetron 4 MG/2 ML VIAL ONE (14:24)
[2017-02-01] MEDS ORDERED: *HR* Morphine 2 MG/ML SYRINGE IVP PRN (14:29)
[2017-02-01] MEDS ORDERED: Ondansetron 4 MG/2 ML VIAL IVP ONE (14:29)
--- NOTE | 2017-02-01 15:07 | OB/GYN Procedure Note ---
OB-RECEIVING SUPERVISOR: Procedure - Diagnosis Date of procedure: 02/01/17 Pre-op diagnosis: day 4 with fever and possible retained placenta by ultrasound Post-op diagnosis: same - Procedure Procedure: Suction D&C Surgeon: Betito Bradshaw Anesthesia Type: General Estimated blood loss (cc): 40 Fluids: crystalloid Specimens collected: Products of conception, probable placental tissue and blood clot Disposition: PACU Findings: Approximate 40 mL of clot in grayish tissue Narrative: Patient's [id number] 2 now para 2 female 4 days status post normal spontaneous vaginal delivery at [facility] who was admitted just stay with fever degrees tachycardia and general malaise.. She really was not having much excessive bleeding her main complaint was of nonproductive cough and shortness of breath as well as rackers she did have a normal chest x-ray and spiral CT. Abdominal and pelvic CT showed probable blood within uterine cavity pelvic ultrasound showed possible increased arterial flow suggestive of possible retained products conception. This patient did have severe fevers and tachycardia despite IV antibiotics decision was made to proceed with suction D& C to basically evacuate the uterus. Is aware of operative risks and signed appropriate consent. Description procedure patient was taken operating room general anesthesia was administered. She was prepped draped in usual sterile fashion bladder was drained of clear urine. Cervix is visualized and grasped with single-tooth tenaculum uterus sounded to 10 cm the cervix was already dilated 8 mm suction curet was passed multiple times one blood clot and some grayish green tissue consistent with possible placental tissue after passed the suction curet multiple times with minimal residual tissue gentle sharp curettage was performed. The uterine barillas felt smooth and there is minimal residual tissue. This point uterus was massaged until firm there is minimal bleeding all sponge and instruments counts are correct patient was taken recovery in good condition.
--- NOTE | 2017-02-01 15:10 | Anesthesia Evaluation Post Op ---
Date of Encounter: 02/01/17 Time of Encounter: 15:09 - Vital Signs Vital Signs: Vital Signs/O2 Sat, Most Current Temp Pulse Resp BP Pulse Ox 97.1 F L 101 16 127/78 95 02/01/17 14:41 02/01/17 15:01 02/01/17 15:01 02/01/17 15:01 02/01/17 15:01 - Lungs Lungs: Clear Ascult./Percussion - Airway Airway: Non-obstructed - Cardiovascular Regular Rate - Mental Status Mental Status: Alert & Oriented, Answers Appropriately - Pain Pain Scale: 4 - Nausea Vomiting Nausea Vomiting: Not Present - Hydration Hydration: NPO, Zuniga catheter - Discharge PostOp Status: Transfer Patient to floor
[2017-02-01] MEDS ORDERED: *HR* HYDROmorphone 2 MG/ML SYRINGE IVP PRN (15:22)
[2017-02-01] MEDS ORDERED: Naloxone 0.4 MG/ML INJ IVP PRN (15:22)
[2017-02-01] MEDS ORDERED: Ondansetron 4 MG/2 ML VIAL IVP PRN (15:22)
[2017-02-01] MEDS ORDERED: Acetaminophen 325 MG TABLET PO PRN (15:22)
[2017-02-01] MEDS: GuaiFENesin/Codeine Oral Soln 5 ML UDC PO PRN (17:35)
[2017-02-01 18:43] LABS: Adenovirus Not Detected (Not Detect); Bordetella Pertussis Not Detected (Not Detect); Chlamydophila pneumoniae Not Detected (Not Detect); Coronavirus 229E Not Detected (Not Detect); Coronavirus HKU1 Not Detected (Not Detect); Coronavirus NL63 Not Detected (Not Detect); Coronavirus OC43 Not Detected (Not Detect); Human Metapneumovirus ***DETECTED*** (Not Detect); Human Rhinovirus/Enterovirus Not Detected (Not Detect); Influenza A Subtype 2009 H1 Not Detected (Not Detect); Influenza A Untypeable Not Detected (Not Detect); Influenza B Not Detected (Not Detect); Mycoplasma pneumoniae Not Detected (Not Detect); Parainfluenza Virus 1 Not Detected (Not Detect); Parainfluenza Virus 2 Not Detected (Not Detect); Parainfluenza Virus 3 Not Detected (Not Detect); Parainfluenza Virus 4 Not Detected (Not Detect); Respiratory Syncytial Virus Not Detected (Not Detect)
[2017-02-01] MEDS: *HR* HYDROcodone/Acet 10/325 mg TABLET PO PRN (21:46)
[2017-02-01] MEDS ORDERED: Melatonin 3 MG TABLET PO PRN (22:32)
[2017-02-02] MEDS: *HR* HYDROcodone/Acet 10/325 mg TABLET PO PRN (04:59)
[2017-02-02] MEDS: GuaiFENesin/Codeine Oral Soln 5 ML UDC PO PRN ×2 (06:26→14:00)
[2017-02-02] MEDS ORDERED: Ertapenem 1,000 MG in 0.9 % Sodium Chloride Mini Bag 100 ML IVPB SCH (09:00)
[2017-02-02] MEDS ORDERED: BuPROPion XL (24 HR) 150 MG TABLET PO SCH (09:00)
[2017-02-02] MEDS: Clindamycin 600 MG/50 ML 600 MG/50 ML IV.SOLN IVPB SCH (09:21)
--- NOTE | 2017-02-02 09:38 | Discharge Summary ---
<Adriane Stewart - Last Filed: 02/02/17 11:52> Date of Encounter: 02/02/17 Time of Encounter: 09:29 - Discharge Diagnosis (1) SIRS (systemic inflammatory response syndrome) Status: Acute (2) Abdominal pain Status: Acute Qualifiers: Abdominal location: generalized Qualified Code(s): R10.84 - Generalized abdominal pain (3) Febrile illness Status: Acute (4) URI, acute Status: Acute - Discharge Medications Prescriptions: Clindamycin [Cleocin] 300 mg PO BID #14 capsule GuaiFENesin/Codeine [ROBITUSSIN w/CODEINE] 5 ml PO BID PRN #50 ml PRN Reason: Cough HYDROcodone/Acet 5/325 mg [[place] 5-325 mg] 1 tab PO Q6H PRN #10 tab PRN Reason: Pain Home Medications: DiphenhydraMINE [Benadryl] 25 mg PO Q6HR PRN 01/21/17 [History] BuPROPion XL (24 HR) [Wellbutrin Xl] 150 mg PO DAILY 01/31/17 [History] Multivitamin [Multi-Day Vitamins] 1 each PO DAILY 01/31/17 [History] Clindamycin [Cleocin] 300 mg PO BID #14 capsule 02/02/17 [Rx] GuaiFENesin/Codeine [ROBITUSSIN w/CODEINE] 5 ml PO BID PRN #50 ml 02/02/17 [Rx] HYDROcodone/Acet 5/325 mg [[place] 5-325 mg] 1 tab PO Q6H PRN #10 tab 02/02/17 [Rx ] Allergies/Adverse Reactions: Allergies Amoxicillin Allergy (Verified 07/12/16 23:46) Rash Procedures/tests Complete & Pending: Procedures Performed prior 72 hours Category Date Time Status pelvic ultrasound complete [US pelvic complete] [US] Exams 01/31/17 21:30 Completed Routine Date of admission: 01/31/17 19:08 Primary care physician: Iqra Tolentino Consults: Dr. Bradshaw Discharging clinician: Adriane Stewart Anticipated date of discharge: 02/02/17 - Patient Status Disposition: Home, Self-Care Condition: Good Functional capacity at discharge: independent ambulation Overall status at discharge: patient is progressing back to baseline - Discharge Instructions Instructions: Clindamycin (By mouth), Hydrocodone/Acetaminophen (By mouth), Guaifenesin (By mouth), Upper Respiratory Infection (GEN) Follow Up With: Iqra Tolentino MD [Primary Care Provider] - 02/08/17 3:15 pm - Diet and Activity Activity: increase activity as tolerated, resume usual activities as tolerated Diet: advance to your usual diet Interval History: 21 yo F presented with c/o cough, febrile tachycardic 3 days Post from normal vaginal delivery. PE workup in ER was negative. On abd/pelvic US there was indication of possible retained uterine products. Pt underwent D&C with removal of 40ml tissue and clot. RIP panel was + for human metapneumovirus. Pt progressed well, fever and tachycardia resolved, cough is still present but improved. Hospital course: Ms. Hassan is a 21 year old female - Time Spent with Patient Total time spent providing and/or coordinating discharge services: Less than 30 minutes - Constitutional Vitals: Temp Pulse Resp BP Pulse Ox 97.7 F 66 16 107/61 93 02/02/17 07:12 02/02/17 07:12 02/02/17 07:12 02/02/17 07:12 02/02/17 07:50 General appearance: Present: A&O X 3, pleasant, obese, answers questions appropriately - Head Head exam: Present: atraumatic, normocephalic - Eye Eye exam: Present: PERRL, conjuntiva pink, sclera anicteric Pupils: Present: PERRL - Neck Neck exam general surgery: Present: supple, trachea midline. Absent: lymphadenopathy - Respiratory Respiratory exam: Present: CTAB. Absent: accessory muscle use, rales, rhonchi, wheezes - Cardiovascular Cardiovascular exam: Present: RRR, +S1, +S2. Absent: diastolic murmur, gallop, rubs, systolic murmur - GI/Abdominal GI/Abdominal exam: Present: normal bowel sounds, soft, no peritoneal signs. Absent: distended, tenderness - Extremities Exam Extremities exam: Present: warm, radial pulses palpable and symetrical. Absent : calf tenderness, cyanotic, pedal edema - Neurological Exam Neurological exam: Present: CN II-XII intact, oriented X3, no focal deficits. Absent: pronater drift, facial droop, speech deficit - Skin Skin exam: Present: dry, intact - VTE Documentation of Mechanical Device: Intermittent pneumatic compression device <Keith Starr Phil - Last Filed: 02/02/17 16:09> Date of Encounter: 02/02/17 - Discharge Diagnosis (1) Acute bronchitis due to human metapneumovirus Priority: Primary Status: Acute (2) Acute endometritis Priority: Primary Status: Acute (3) SIRS (systemic inflammatory response syndrome) Priority: Primary Status: Resolved (4) Febrile illness Priority: Secondary Status: Resolved (5) URI, acute Priority: Secondary Status: Acute Procedures/tests Complete & Pending: Procedures Performed prior 72 hours Category Date Time Status pelvic ultrasound complete [US pelvic complete] [US] Exams 01/31/17 21:30 Completed Routine Date of admission: 01/31/17 19:08 [facility] [place] [facility]: Ms. Hassan is a 21 year old female - Time Spent with Patient Total time spent providing and/or coordinating discharge services: 28min - Constitutional Vitals: Temp Pulse Resp BP Pulse Ox 97.6 F 80 16 118/93 98 02/02/17 11:16 02/02/17 11:16 02/02/17 11:16 02/02/17 11:16 02/02/17 11:16 - Attending Attestation I examined this patient and my medical decision-making was reviewed with the Resident Physician on 02/02/17. I agree with the documented findings, disposition and treatment plan as described except to the extent set forth below. Ms. Hassan is feeling better today. She has been afebrile and vitals are stable. Having some cramping from surgery. Exam Alert. Comfortable Heart reg No wheeze Plan D/C home today Clindamycin PO Follow up with PCP and OB.
[2017-02-02 11:23] VITALS: BP 118/93
== END 2017-02-02 14:00 | disposition home or self-care (01) | DRG 544 ==
LOC: EMEROO 10:31 → 3ANU 10:31 → 2NENU 17:26 → SUATTDRO 19:08
PROVIDERS: ADMIT Internal Medicine; ATTEND Internal Medicine